=== PATIENT | female | born 1935 | race Caucasian/White ===

== ENCOUNTER 2021-06-06 17:22 | Emergency (ER) | payer OTHER, SELFPAY ==
--- NOTE | 2021-06-06 17:24 | ED.UPPEXIN ---
HPI - Extremity Injury (Upper) General Chief Complaint: Skin/Abscess/Foreign Body Stated Complaint: injury to left arm Time Seen by Provider: 06/06/21 17:25 Source: patient and RN notes reviewed History of Present Illness HPI narrative: Patient is an 85-year-old female who presents the urgent care with complaints of multiple skin tears/wounds due to a fall. Patient states that she fell on the rocks near her driveway just prior to arrival. Patient denies hitting her head or any loss of consciousness. Patient states her main concern are the wounds to her left arm. Patient has wrapped a towel around the arm but otherwise no treatment prior to arrival. No other acute complaints. No acute distress noted. Patient aware of the plan of care Some parts of this dictation were generated by voice recognition software and may contain typographical and/or grammatical inaccuracies. Related Data Allergies Allergy/AdvReac Type Severity Reaction Status Date / Time No Known Allergies Allergy Verified 06/06/21 17:41 Review of Systems Review of Systems: CONSTITUTIONAL: Denies fever, chills, or sweats. EYES: Denies visual changes, redness, or discharge. ENT: Denies rhinorrhea, congestion, sore throat, or otalgia. CARDIOVASCULAR: Denies chest pain, palpitations, or edema. RESPIRATORY: Denies cough or dyspnea. GASTROINTESTINAL: Denies abdominal pain, nausea, vomiting, or diarrhea. GENITOURINARY: Denies dysuria or hematuria. SKIN: Reports of multiple wounds to the left forearm and left leg MUSCULOSKELETAL: Denies back pain, joint pain, or myalgia. NEUROLOGIC: Denies headache, numbness, or weakness. All other systems reviewed are negative, except as documented in HPI. PMFSH Comments At the time of my signature, I reviewed and agree with the nursing past medical, surgical, social, and family history. There is no relevant family history pertinent to the patient complaint. Exam Narrative: GENERAL: This is a well-nourished, well-developed patient, in no apparent distress. HEAD: normocephalic, atraumatic. EYES: PERRL. Sclera clear/white. Vision is grossly intact. EARS: External ears normal NOSE: External nose normal with no obvious nasal discharge, nares without redness, no rhinorrhea. THROAT: Mucous membranes moist NECK: Neck supple SKIN: 1 cm abrasion noted to the left knee, 1 cm abrasion noted to the left lower leg, 3 cm abrasion noted to the lateral left knee. 5 x 4 cm skin tear to the left forearm, 3 cm circular flap skin tear to the dorsal aspect of the left hand NEURO: awake, alert, and oriented to person, place and time. There were no obvious focal neurologic abnormalities. EXTREMITIES: Moves all extremities without difficulty. No obvious deformity noted to left upper or left lower extremity. Course Course Level of Care: Express Care Visit Vital Signs Vital signs: Vital Signs Temperature 98.4 F 06/06/21 17:39 Pulse Rate 83 06/06/21 17:39 Respiratory Rate 20 06/06/21 17:39 Pulse Oximetry 100 06/06/21 17:39 Temperature 98.4 F 06/06/21 17:39 Pulse Rate 83 06/06/21 17:39 Respiratory Rate 20 06/06/21 17:39 Pulse Oximetry 100 06/06/21 17:39 Reviewed-patient is informed that they may have pre-hypertension or hypertension based on a blood pressure reading in the department. I recommend the patient call the primary care provider listed on their discharge instructions or a physician of their choice this week to arrange follow-up for further evaluation of possible pre-hypertension or hypertension. Procedures Other Procedure Procedure 1: Other Procedure: 5 x 4 cm skin tear to the left forearm and 3 cm skin tear/flap to the dorsal left hand Steri-Stripped after technique care and normal saline cleanse. Patient tolerated well. No complications. All other wounds cleaned with [employer] normal saline. MDM - Extremity Injury (Upper) MDM Narrative Medical decision making narrative: Advised the patient NOT TO ROSA[facility]A
[2021-06-06 17:39] VITALS: BP 188/91; PULSE 83; RESP 20; TEMP 36.9; O2SAT 100
== END 2021-06-06 18:19 | disposition home or self-care (01) ==
PROVIDERS: Emergency Provider Nurse Practitioner Family; PCP Family Medicine
DX: S51.812A Laceration without foreign body of left forearm, initial encounter (principal); S61.412A Laceration without foreign body of left hand, initial encounter; W19.XXXA Unspecified fall, initial encounter; I10 Essential (primary) hypertension
CPT/HCPCS: 99212; G0463

== ENCOUNTER 2021-06-22 10:17 | Emergency (ER) | payer OTHER, SELFPAY ==
--- NOTE | 2021-06-22 10:22 | ED.GENADULT ---
HPI - General Adult General Chief complaint: Wound/Laceration Stated complaint: Wound Check Time Seen by Provider: 06/22/21 10:29 Source: patient Mode of arrival: ambulatory Limitations: no limitations History of Present Illness HPI narrative: 85-year-old female presented for wound recheck of the skin tear to the left forearm and the left hand which was sustained on 06/06/2021. She was seen in [facility] at that time, Steri-Strips have been applied. She states she has trimmed the edges of the Steri-Strips but they remain intact. No signs or symptoms of infection reported. She states I just 1 to make sure they are okay. Related Data Home Medications Medication Instructions Recorded Confirmed lorazepam [Ativan] 0.5 mg PO Q8-10H 06/22/21 06/22/21 triamterene-hydrochlorothiazid 1 cap PO DAILY 06/22/21 06/22/21 Allergies Allergy/AdvReac Type Severity Reaction Status Date / Time No Known Allergies Allergy Verified 06/22/21 10:22 Review of Systems Review of Systems: CONSTITUTIONAL: Denies body aches, fever, chills, or sweats. EYES: Denies visual changes, redness, or discharge. ENT: Denies rhinorrhea, congestion, sore throat, or otalgia. CARDIOVASCULAR: Denies chest pain, palpitations, or edema. RESPIRATORY: Denies cough or dyspnea. GASTROINTESTINAL: Denies abdominal pain, nausea, vomiting, or diarrhea. GENITOURINARY: Denies dysuria or hematuria. SKIN: Left forearm healing skin tear MUSCULOSKELETAL: Denies back pain, joint pain, or myalgia. NEUROLOGIC: Denies headache, numbness, tingling, or weakness. PSYCH: Denies depression or anxiety. PMFSH Comments At time of signature, I have reviewed and agree with nursing past medical, surgical, social and family history unless otherwise noted. Please see nursing chart for further information. There is no relevant family history pertinent to the presenting complaint Exam Narrative: GENERAL: Well-appearing HEAD: Normocephalic, atraumatic. EYES: conjunctivae clear, and EOMI. ENT: Mucous membranes moist. Oropharynx without edema, erythema or lesions. NECK: Supple. No lymphadenopathy CHEST: Clear to auscultation. No respiratory distress. HEART: Regular rate and rhythm. SKIN: Warm, dry. Left forearm with steri strips intact and scabbed area with scant serosanguineous drainage to the forearm, left hand steri strips intact with scabbed area NEURO: Alert and oriented x3. PSYCH: Normal mood and affect Course Course Emergency Course: Patient is aware of diagnosis, understands and agrees to treatment plan. Anticipatory guidance given. Patient agrees to follow-up as directed and is aware of reasons to seek care at the emergency department. Portions of this record may have been created with voice recognition software Level of Care: Express Care Visit Vital Signs Vital signs: Reviewed Medical Decision Making MDM Narrative Medical decision making narrative: Pt presented for wound recheck to steri strips left forearm and hand. she declines removal of steri strips at this time for further wound evaluation. No s/s infection noted. v/u.She is advised to follow up with pcp, Differential Diagnosis Differential Diagnosis: laceration, skin avulsion, cellulitis Discharge Plan Discharge Clinical Impression: Encounter for wound re-check Patient Disposition: Home, Self-Care Condition: Stable Instructions: Antibiotic Form, Laceration (ED), Steristrips (ED) Additional Instructions: Keep the area clean and dry - cleanse with warm water and mild soap and allow to fully dry. Keep steri strips in place, continue to trim the edges Watch for worsening symptoms including pain, redness, swelling, streaking, pus/drainage, fever. Go to the ER with any of these symptoms or concerns. Follow up with primary care provider, call to schedule appointment Prescriptions: No Action triamterene-hydrochlorothiazid 37.5-25 mg capsule 1 cap PO DAILY RF: 0 lorazepam [Ativan] 0.5 mg t
[2021-06-22 10:24] VITALS: BP 156/105; PULSE 88; RESP 14; TEMP 36.9; O2SAT 100
== END 2021-06-22 10:38 | disposition home or self-care (01) ==
PROVIDERS: Emergency Provider Nurse Practitioner Family; PCP Family Medicine
DX: Z48.00 Encounter for change or removal of nonsurgical wound dressing (principal); I10 Essential (primary) hypertension; A41.9 Sepsis, unspecified organism
CPT/HCPCS: 99211; G0463